=== PATIENT | female | born 1990 | race Caucasian/White ===

== ENCOUNTER → 2020-01-29 18:05 | Outpatient (CLI) | payer OTHER, SELFPAY | PROVIDERS: PCP Nurse Practitioner Family; Referring Provider Nurse Practitioner Family; Visit Provider Nurse Practitioner Family | DX: Z11.59 Encounter for screening for other viral diseases (principal); Z20.828 Contact with and (suspected) exposure to other viral communicable diseases | CPT/HCPCS: 87635; 87804; 87807; 87880; G2023; U0003 ==

== ENCOUNTER → 2020-07-25 09:41 | Outpatient (CLI) | payer OTHER, SELFPAY ==
[2020-06-04 08:17] VITALS: BMI 37.6
[2020-07-25 12:40] LABS: Vitamin B12 359 pg/mL (211-911)
[2020-07-25 12:44] LABS: T4 Free Direct 1.28 ng/dL (0.76-1.46); Thyroid Stim Hormone (TSH) 0.61 uIU/mL (0.358-3.74)
== END ==
PROVIDERS: PCP Nurse Practitioner Family; Referring Provider Internal Medicine Endocrinology, Diabetes & Metabolism; Visit Provider Internal Medicine Endocrinology, Diabetes & Metabolism
DX: E03.8 Other specified hypothyroidism (principal); E06.3 Autoimmune thyroiditis; R20.2 Paresthesia of skin
CPT/HCPCS: 36415; 82607; 84439; 84443

== ENCOUNTER 2021-08-20 09:28 | Outpatient (CLI) | payer OTHER, SELFPAY ==
[2021-08-20 12:17] LABS: Vitamin D,25 Hydroxy 26.9 ng/mL
[2021-08-20 12:24] LABS: T4 Free Direct 1.15 ng/dL (0.76-1.46); Thyroid Stim Hormone (TSH) 7.55 uIU/mL (0.358-3.74)
== END 2021-08-20 23:59 | disposition short-term general hospital (02) ==
LOC: BIMLAB 09:29
PROVIDERS: PCP Nurse Practitioner Family; Referring Provider Internal Medicine Endocrinology, Diabetes & Metabolism; Visit Provider Internal Medicine Endocrinology, Diabetes & Metabolism
DX: E03.8 Other specified hypothyroidism (principal); K55.9 Vascular disorder of intestine, unspecified; E06.3 Autoimmune thyroiditis; K90.9 Intestinal malabsorption, unspecified
CPT/HCPCS: 36415; 82306; 84439; 84443

== ENCOUNTER 2021-10-22 15:21 | Outpatient (CLI) | payer OTHER, SELFPAY ==
[2021-10-22 17:32] LABS: T4 Free Direct 1.45 ng/dL (0.76-1.46); Thyroid Stim Hormone (TSH) 0.33 uIU/mL (0.358-3.74)
== END 2021-10-22 23:59 | disposition home or self-care (01) ==
LOC: BIMLAB 15:23
PROVIDERS: PCP Nurse Practitioner Family; Referring Provider Internal Medicine Endocrinology, Diabetes & Metabolism; Visit Provider Internal Medicine Endocrinology, Diabetes & Metabolism
DX: E55.9 Vitamin D deficiency, unspecified (principal); E03.8 Other specified hypothyroidism; E06.3 Autoimmune thyroiditis; K90.9 Intestinal malabsorption, unspecified
CPT/HCPCS: 36415; 82306; 84439; 84443

== ENCOUNTER → 2022-09-25 | Outpatient (CLI) | payer BC, SELFPAY ==
[2022-09-25 12:36] LABS: Vitamin B12 633 pg/mL (211-911); Vitamin D,25 Hydroxy 39.3 ng/mL
[2022-09-25 13:04] LABS: Ferritin 86 ng/mL (8-252); T4 Free Direct 1.21 ng/dL (0.76-1.46)
== END | disposition home or self-care (01) ==
LOC: BIMLAB 10:06
PROVIDERS: PCP Nurse Practitioner Family; Referring Provider Internal Medicine Endocrinology, Diabetes & Metabolism; Visit Provider Internal Medicine Endocrinology, Diabetes & Metabolism
DX: E03.8 Other specified hypothyroidism (principal); E06.3 Autoimmune thyroiditis; K90.9 Intestinal malabsorption, unspecified
CPT/HCPCS: 36415; 82306; 82607; 82728; 84439; 84443

== ENCOUNTER → 2022-12-04 | Outpatient (CLI) | payer BC, SELFPAY ==
[2022-12-04 18:13] LABS: T4 Free Direct 1.21 ng/dL (0.76-1.46); Thyroid Stim Hormone (TSH) 1.23 uIU/mL (0.358-3.74)
== END | disposition home or self-care (01) ==
LOC: MTLAB 15:34
PROVIDERS: PCP Nurse Practitioner Family; Referring Provider Internal Medicine Endocrinology, Diabetes & Metabolism; Visit Provider Internal Medicine Endocrinology, Diabetes & Metabolism
DX: E03.8 Other specified hypothyroidism (principal); E06.3 Autoimmune thyroiditis
CPT/HCPCS: 36415; 84439; 84443

== ENCOUNTER → 2023-09-27 | Outpatient (CLI) | payer BC, SELFPAY ==
--- OUTSIDE RECORDS SUMMARY | 2023-09-27 10:40 | XMS RPT_ITS | CCD ---
Author Name Unknown Address [address] [place] [address] Organization [facility] Care Team Providers Care Home Inspector Name Role Phone Unavailable Primary Care Provider UnavailHYACINTH Andrew Attending Unavailable BRIGHT RAGSDALE Admitting Unavailab BRIGHT Daniels Referring Unavailab ARGENTINA Quintanilla Attending Unavailable NO, PHYSICIAN Primary Care Unavailable JUAN JOSE SAUL Attending Unavailabl e DORYS, JUAN JOSE BRAMBILA Admitting Unavailabl e DORYS, JUAN JOSE BRAMBILA Referring Unavailabl e NO, PHYSICIAN Primary Care Unavailable DORYS, JUAN JOSE BRAMBILA Admitting Unavailabl e DORYS, JUAN JOSE BRAMBILA Referring Unavailabl e NO, PHYSICIAN Primary Care Unavailable [facility] STRATEGIC CONSULTANT.[facility], [facility] Primary Care Provider [facility] STRATEGIC CONSULTANT.[facility], [facility] Primary Care Provider [facility] STRATEGIC CONSULTANT.[facility], [facility] Primary Care Provider [facility] STRATEGIC CONSULTANT.[facility], [facility] Primary Care Provider ZHENG BURGESS Attending Unavailable [facility] Primary Care Unavailable Allergies Allergy Classification Reported Allergen(s) Allergy Type Date of Onset Reaction(s) Facility Sulfonamides (antibiotic) (1 source) Sulfonamides (Antibiotic); Translations: [SULFA (SULFONAMIDE ANTIBIOTICS)] Drug Allergy 8 [facility] (5 sources) Sulfamethoxazole / Trimethoprim; Translations: [SULFAMETHOXAZOLE-TR IMETHOPRIM] Drug Allergy 8 Hives, Itching, Other: See Comments [facility] (5 sources) Sulfonamides (Antibiotic); Translations: [SULFA (SULFONAMIDE ANTIBIOTICS)] Drug Allergy 8 Hives, Itching, Other: See Comments [facility] Medications Current Medications Medication Drug Class(es) Dates Sig (Normalized) Sig (Original) levonorgestrel 0.454331 mg/hr intrauterine system (4 sources) Progestin, Progestin-containi ng Intrauterine Device Start: 11-23-2017 End: 11-23-2022 levonorgestrel (MIRENA) 20 mcg/24 hours (8 yrs) 52 mg IUD 1 Each by INTRAUTERINE route continuous. 0 11/23/2017 11/23/2022 Active Completed/Discontinued Medications Medication Drug Class(es) Dates Sig (Normalized) Sig (Original) 24 hr buPROPion hydrochloride 150 mg extended release oral tablet (4 sources) Aminoketone Start: 04-01-2022 End: 09-21-2022 take 1 tablet by mouth once daily buPROPion XL (WELLBUTRIN XL) 150 mg 24 hr tablet Indications: Mixed anxiety and depressive disorder , Primary insomnia TAKE 1 TABLET BY MOUTH EVERY DAY 90 tablet 1 04/01/2022 09/21/2022 Discontinued (Discontinued by Patient) Problems Active Problems Problem Classification Problem Date Documented Date Episodic/Chronic Anxiety disorders (6 sources) Mixed anxiety and depressive disorder; Translations: [Other specified anxiety disorders] Onset: 06-21-2019 Chronic Contraceptive and procreative management (2 sources) Contraception ; Translations: [Encounter for surveillance of other contraceptives] Onset: 09-21-2022 Episodic Miscellaneous mental health disorders (1 source) Primary insomnia; Translations: [Primary insomnia] Chronic Other nutritional; endocrine; and metabolic disorders (4 sources) Obese class II; Translations: [Obesity, unspecified] Onset: 03-13-2019 03-13-2019 Chronic Other nutritional; endocrine; and metabolic disorders (1 source) Severe obesity; Translations: [Morbid (severe) obesity due to excess calories] Chronic Other nutritional; endocrine; and metabolic disorders (1 source) Morbid (severe) obesity due to excess calories; Translations: [Class 3 severe obesity due to excess calories without serious comorbidity with body mass index (BMI) of 40.0 to 44.9 in adult (HCC)] Onset: 09-21-2022 Chronic Other nutritional; endocrine; and metabolic disorders (1 source) Body mass index (BMI) 40.0-44.9, adult; Translations: [Class 3 severe obesity due to excess calories without serious comorbidity with body mass index (BMI) of 40.0 to 44.9 in adult (HCC)] Onset: 09-21-2022 Chronic Substance-related disorders (2 sources) Tobacco user; Translations: [Nicotine dependence, unspecified, uncomplicated] Onset: 09-21-2022 Chronic Thyroid disorders (8 sources) Hypothyroidism; Translations: [Hypothyroidism, unspecified] Onset: 12-23-2005 04-02-2014 Chronic Past or Other Problems Problem Classification Problem Date Documented Da te Episodic/Chronic Other skin disorders (4 sources) Acne vulgaris; Translations: [Acne vulgaris] Onset: 04-07-2017 04-07-2017 Episodic Results Test Name Value Interpretation Reference Range Facil ity Vital Signs Date Time Vital Sign Value Performing Clinician Faci lity 09-21-2022 10:43-0500 Body height 162.6 cm Zheng Burgess APRN.CNM Work Phone: [facility] 09-21-2022 10:43-0500 Body weight 110.13 kg Zheng Burgess APRN.CNM Work Phone: [facility] 09-21-2022 10:43-0500 Diastolic blood pressure 74 mm[Hg] Zheng Burgess APRN.CNM Work Phone: [facility] 09-21-2022 10:43-0500 Systolic blood pressure 128 mm[Hg] Zheng Burgess APRN.CNM Work Phone: [facility] Encounters Encounter Date Encounter Type Care Provider Facility Start: 09-21-2022 End: 09-22-2022 ambulatory ZHENG BURGESS Facility:[facility] Start: 09-21-2022 Encounter for gynecological examination (general) (routine) with abnormal findings ZHENG BURGESS [facility] Start: 09-21-2022 End: 09-21-2022 Patient encounter procedure Zheng Burgess APRN.CNM Work Phone: OB/Gynecology Plan of Treatment Date Care Activity Detail Author Start: 06-21-2029 Tetanus vaccination Tetanus: Every 10yrs [facility] Start: 06-21-2029 Urine microalbumin profile DTAP,TDAP,TD (7 - Td or Tdap) [facility] Start: 07-09-2026 HPV TESTING HPV TESTING [facility] Start: 07-09-2026 PAP TESTING PAP TESTING [facility] Start: 04-30-2022 ANNUAL PCP TEAM CHRONIC DISEASE VISIT ANNUAL PCP TEAM CHRONIC DISEASE VISIT [facility] Start: 03-26-2022 Influenza vaccination INFLUENZA (#1) [facility] Start: 11-20-2021 COVID-19 VACCINE (4 - Booster for Pfizer series) COVID-19 VACCINE (4 - Booster for Pfizer series) [facility] Start: 11-29-2020 End: 11-29-2020 ambulatory 11/29/2020 Immunization Primary Care Bright Ragsdale MD [address] [place] [id number] [phone] [facility] [place] Covid Vaccine [facility] Start: 11-29-2020 COVID-19 Vaccine (2 - Pfizer 2-dose series) COVID-19 Vaccine (2 - Pfizer 2-dose series) [facility] Start: 08-08-2020 PNEUMOCOCCAL (2 - PCV) PNEUMOCOCCAL (2 - PCV) [facility] Start: 03-26-2020 Influenza vaccination Sequential Influenza Vaccine (#1) [facility] Start: 12-16-2007 Hepatitis C screening Hepatitis C Screening [facility] Start: 2004 HIV screening HIV Screening [facility] Start: 2001 Depression screening using PHQ-9 (Patient Health Questionnaire 9) score Depression Screening (PHQ9) [facility] Start: 1992 History and physical examination, annual for health maintenance Wellness Visit [facility] Start: 1989 Screening for malignant neoplasm of cervix Pap Smear [facility] Immunizations Immunization Date Immunization Notes Care Provider Fa cility 09-25-2021 COVID-19 vaccine, ag e 12+ yr (PFIZER-BIONTECH - PURPLE TOP) Joycelyn Osorio APRN.ELECTRIC NEEDLE SPECIALIST Work Phone: [facility] 11-08-2020 Pfizer SARS-CoV-2 Vaccination Hyacinth Kenyon RN [facility] 08-08-2019 pneumococcal polysaccharide vaccine, 23 valent Joycelyn Osorio STRATEGIC CONSULTANT.ELECTRIC NEEDLE SPECIALIST Work Phone: [facility] 06-21-2019 influenza, injectabl e, quadrivalent, contains preservative Joycelyn Devon STRATEGIC CONSULTANT.ELECTRIC NEEDLE SPECIALIST Work Phone: [facility] 06-21-2019 tetanus toxoid, redu [place] diphtheria toxoid, and acellular pertussis vaccine, adsorbed Joycelyn Devon STRATEGIC CONSULTANT.[facility] Work Phone: [facility] 11-18-2015 human papilloma viru s vaccine, quadrivalent Joycelyn Devon STRATEGIC CONSULTANT.ELECTRIC NEEDLE SPECIALIST Work Phone: [facility] Work Phone: 07-18-2015 human papilloma viru s vaccine, quadrivalent Joycelyn Devon STRATEGIC CONSULTANT.ELECTRIC NEEDLE SPECIALIST Work Phone: [facility] 05-20-2015 Human Papillomavirus 9-valent vaccine Joycelyn Devon STRATEGIC CONSULTANT.[facility] Work Phone: [facility] Work Phone: 02-04-2007 human papilloma viru s vaccine, quadrivalent Joycelyn Devon STRATEGIC CONSULTANT.[facility] Work Phone: [facility] Work Phone: 09-07-2006 Meningococcal, MCV4, unspecified conjugate formulation(groups A, C, Y and W-135) Joycelyn Devon STRATEGIC CONSULTANT.[facility] Work Phone: [facility] Work Phone: 01-24-2004 tetanus and diphther ia toxoids, adsorbed, preservative free, for adult use (2 Lf of tetanus toxoid and 2 Lf of diphtheria toxoid) Joycelyn Devon STRATEGIC CONSULTANT.[facility] Work Phone: [facility] Work Phone: 08-21-2002 hepatitis B vaccine, pediatric or pediatric/adolescent dosage Joycelyn Devon STRATEGIC CONSULTANT.ELECTRIC NEEDLE SPECIALIST Work Phone: [facility] Work Phone: 12-28-2001 hepatitis B vaccine, pediatric or pediatric/adolescent dosage Joycelyn Devon STRATEGIC CONSULTANT.ELECTRIC NEEDLE SPECIALIST Work Phone: [facility] Work Phone: 12-28-2001 measles, mumps and rubella virus vaccine Joycelyn Devon STRATEGIC CONSULTANT.ELECTRIC NEEDLE SPECIALIST Work Phone: [facility] Work Phone: 10-19-2001 hepatitis B vaccine, pediatric or pediatric/adolescent dosage Joycelyn Devon STRATEGIC CONSULTANT.[facility] Work Phone: [facility] Work Phone: 02-18-1995 diphtheria, tetanus toxoids and pertussis vaccine Joycelyn Deovn STRATEGIC CONSULTANT.[facility] Work Phone: [facility] Work Phone: 02-18-1995 trivalent poliovirus vaccine, live, oral Joycelyn Devon STRATEGIC CONSULTANT.[facility] Work Phone: [facility] Work Phone: 08-10-1991 diphtheria, tetanus toxoids and pertussis vaccine Joycelyn Devon STRATEGIC CONSULTANT.[facility] Work Phone: [facility] Work Phone: 08-10-1991 trivalent poliovirus vaccine, live, oral Joycelyn Devon STRATEGIC CONSULTANT.[facility] Work Phone: [facility] Work Phone: 05-11-1991 haemophilus influenz ae type b vaccine, PRP-D conjugate Joycelyn Devon STRATEGIC CONSULTANT.[facility] Work Phone: [facility] Work Phone: 05-11-1991 measles, mumps and rubella virus vaccine Joycelyn Devon STRATEGIC CONSULTANT.[facility] Work Phone: [facility] Work Phone: 06-30-1990 diphtheria, tetanus toxoids and pertussis vaccine Joycelyn Devon STRATEGIC CONSULTANT.[facility] Work Phone: [facility] Work Phone: 04-28-1990 diphtheria, tetanus toxoids and pertussis vaccine Joycelyn Devon STRATEGIC CONSULTANT.[facility] Work Phone: [facility] Work Phone: 04-28-1990 trivalent poliovirus vaccine, live, oral Joycelyn Devon STRATEGIC CONSULTANT.[facility] Work Phone: [facility] Work Phone: 02-24-1990 diphtheria, tetanus toxoids and pertussis vaccine [facility] STRATEGIC CONSULTANT.ELECTRIC NEEDLE SPECIALIST Work Phone: [facility] Work Phone: 02-24-1990 trivalent poliovirus vaccine, live, [facility].ELECTRIC NEEDLE SPECIALIST Work Phone: [facility] Work Phone: Payers Date Payer Category Payer Unknown [id number] 2019 Unknown [id number] 2019 Unknown MMO MMO [employer] [id number] 2019-Present [phone] [address] [place] [address] PPO [id number] 2019 Unknown [id number] 1989 Unknown [id number] 1989 Unknown [id number] 1989 Unknown [id number] Social History Date Type Detail Facility Tobacco smoking stat [facility] Unknown if ever smoked [facility] Sex Assigned At Not on file [facility] Exposure to SARS-CoV -2 (event) Not sure [facility] Start: 02-24-2008 End: 09-21-2022 Tobacco smoking status [facility]IS Smokes tobacco daily [facility] Work Phone: Start: 02-24-2008 History of tobacco use Cigarette Smoker [facility] Work Phone: Start: 03-13-2011 End: 09-21-2022 Cigarettes smoked current (pack per day) - Reported 0.5 [facility] Start: 03-13-2011 End: 09-21-2022 Tobacco use and exposure Smokeless tobacco non-user [facility] Work Phone: Start: 07-09-2021 End: 09-21-2022 Alcohol intake Current drinker of alcohol (finding) [facility] Start: 07-30-2019 End: 06-18-2020 History SDOH Alcohol Frequency 5 [facility] Start: 06-18-2020 History SDOH Alcohol Std Drinks 3 [facility] Start: 05-14-2017 History SDOH Alcohol Comment occasionally [facility] Start: 09-06-2019 End: 06-18-2020 History SDOH Social Connections Roman [employer] 1 [facility] Start: 07-30-2019 End: 08-12-2020 History SDOH Social Connections Membership 2 [facility] Start: 07-30-2019 History SDOH Social Connections Living 7 [facility] Start: 07-30-2019 History SDOH Physical Activity DPW 0 [facility] Start: 07-30-2019 Education 18 [facility] Start: 03-13-2019 End: 09-21-2022 Tobacco Comment currently 4-[facility] cig[facility] a day [facility] Start: [facility] Sex Assigned At Female [facility] Clinical Notes 09-21-2014 to 09-21-2022 Patient InstructionsZheng Burgess APRN.CNM - 09/21/2022 10:38 AM ESTTelephone Encounter - Leigh Edomnd Pss - 04/22/2022 11:12 AM EDTTelephone Encounter - Annie Rodriguez Ma - 01/29/2022 9:04 AM EDT Note Date & Type Note Facility 09-21-2022 Note HNO ID: [id number] Author: Zheng Burgess APRN.CNM Service: ? Author Type: Continuous Mining Machine Operator Type: Progress Notes Filed: 09/21/2022 4:31 PM Note Text: Regional Vice President Surgical Sales offered: Patient declines. Radha is a 31 year old who presents for an annual gynecologic exam without complaints. 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 Menses: None- IUD Contraception: IUD - Mirena HPV vaccine: Yes Last Pap: 07/16/2021 normal HPV: 07/14/2021 negative History of abnormal pap: Yes Last mammogram: 2021normal - lump found on annual exam 08/20/21 The 0.7 cm x 0.3 cm x 0.6 cm round normal lymph node in the right breast is benign. Sexually active: Yes History of STDS: None Time with current partner: 2.5 years Exercise: No Diet: regular Seatbelt use: Yes OB History T0 L0 SAB0 IAB0 Ectopic0 Multiple0 Live Births0 Guest Services Representative History LMP: 12/20/2012, IUD Age at Menarche: Age at First : Age at Menopause: Guest Services Representative History Comments: Sexual Activity: Yes; Male; Mirena Contraception: I.U.D. PAST MEDICAL HISTORY Diagnosis Date Anal fissure PMH - PAST MEDICAL HISTORY OF Color Vision - Normal Unspecified hypothyroidism 02/26 Wrist fracture Right wrist PAST SURGICAL HISTORY Procedure Laterality Date PAST SURGICAL HISTORY OF 11/2012 Mirena IUD insertion PAST SURGICAL HISTORY OF 2007 Jaw surgery FAMILY HISTORY Problem Relation Age of Onset Hypertension Mother Arthritis Mother No Known Problems Father No Known Problems Sister Arthritis Maternal Grandmother Breast Cancer Maternal Grandmother Hypertension Maternal Grandfather Prostate Cancer Maternal Grandfather other (lymphoma) Paternal Grandmother Coronary Artery Disease Paternal Grandfather Breast Cancer Maternal Aunt 50 SOCIAL HISTORY Social History Tobacco Use Smoking status: Every Day Packs/day: 0.50 Years: 11.00 Pack years: 5.50 Types: Cigarettes Start date: 02/24/2008 Smokeless tobacco: Never Tobacco comments: currently 4-6 cigs a day Vaping Use Vaping Use: Never used Substance Use Topics Alcohol use: Yes Comment: occasionally Drug use: No REVIEW OF SYSTEMS Abdomen: No abdominal pain, nausea, vomiting, diarrhea, or constipation. No bloating, early satiety, indigestion, or increased flatulence. Bladder: No dysuria, gross hematuria, urinary frequency, urinary urgency, or incontinence. Breast: No breast lumps, nipple d/c, overlying skin changes, redness or skin retraction. Allergies and current medication updated:Yes EXAM: BP 128/74 Ht 5' 4 (1.63m) Wt 242 lb 12.8 oz (110.1kg) LMP 12/20/2012 BMI 41.66 kg/(m2). GENERAL: pleasant, female in no apparent distress HEENT: Normocephalic, atraumatic, mucus membranes moist, and no lesions NECK: Supple, full range of motion, no adenopathy, and thyroid normal DERMATOLOGY: Normal, without lesions, non-icteric, and non-hirsute BREAST: soft, non-tender, symmetric, no dominant mass, normal nipple-areolar complex, no lymphadenopathy, and no nipple discharge CHEST: Normal inspiratory effort ABDOMEN: soft, non-tender, and no masses PELVIC: external genitalia normal, normal Bartholin's glands, urethra, [place]'s glands, no vulvar lesions, no cervical lesions, good vaginal support, physiologic discharge present, normal appearing perineal body and perianal region, IUD strings visualized. BIMANUAL: uterus normal size, shape and consistency, no adnexal masses, non-tender, and no cervical motion tenderness. IUD non-palpable RECTOVAGINAL: deferred. NEURO: alert and oriented x3,exam grossly non-focal EXTREMITIES: normal ASSESSMENT/PLAN: 1. Encounter for gynecological examination with abnormal finding - ICD9: V72.31, ICD10: Z01.411 (primary diagnosis) - Completed pelvic and breast exam - Encouraged monthly BSE - Follow up for annual exam in one year. 2. Encounter for surveillance of other contraceptive - ICD9: V25.49, ICD10: Z30.49 -Mirena IUD inserted 11/2017. Effective through 11/2025. No complications or concerns. 3. Class 3 severe obesity due to excess calories without serious comorbidity with body mass index (BMI) of 40.0 to 44.9 in adult (HCC) - ICD9: 278.01, V85.41, ICD10: E66.01, Z68.41 -Nutrition, exercise and routine health maintenance exams reviewed. -Calcium/Vitamin D supplementation information provided. 4. Tobacco use disorder - ICD9: 305.1, ICD10: F17.200 - Cessation encouraged. - Physiologic and physical aspects of tobacco addiction as well as strategies for quitting were discussed. - Counseling was given focusing on the harmful effects of this addiction especially given the patient's medical condition(s) which will be worsened because of the chemicals in tobacco. - Counseling was given 8 minutes. -Smoking cessation encouraged and resources provided. Benefits of smoking cessation reviewed. Patient encouraged to avoid smoking. 1) Health maintenance (more content not included)... [facility] 09-21-2022 Instructions Carolyne Youssef - 09/21/2022 11:18 AM EST SMOKING CESSATION Stopping smoking is the most important thing you can do to protect your current and future health, as well as that of your family. It is the most potent risk factor for the future development of coronary artery disease and heart attacks. Smoking is both an addiction and a learned behavior. The nicotine withdrawal takes anywhere from 2-4 weeks and results in symptoms such as irritability, fatigue, insomnia, coughing, dizziness, poor concentration, hunger and cigarette cravings. After the nicotine withdrawal period, the learned linkage between certain acts or situations and cigarette use remain. Strategies to deal with these must be developed along with new behaviors to ensure successful smoking cessation. STRATEGIES TOWARD SMOKING CESSATION - Make a list of the reasons why you want to quit, plus the benefits to be gained, and compare them to the reasons why you should continue to smoke. - Pick a specific quit date. - If you are interested in using nicotine patches or gum to assist with the nicotine withdrawal, let the staff know. - Inform friends, family, and co-workers that you are quitting and when your quit date is. Ask for their understanding and support. - Prepare your environment by removing all cigarettes prior to your quit date. - Prior to your quit date, avoid smoking in places where you spend a lot of time (such as the house, work, car). - From previous quit attempts, identify what helped you to stop smoking. - From previous quit attempts, identify what triggered relapse. How can you avoid that again? - What things (situations, emotions) do you anticipate will be most challenging, especially in the first few weeks, to your quitting effort? - What can you do to address these challenges? - Avoid (or limit) alcohol consumption during the quitting process. - If your spouse or close coworker currently smoke, consider quitting together or at the very least, develop specific plans to maintain your cigarette abstinence while in the home or at work. - Take each day, each hour, each craving, one at a time. Every step or action you take toward smoking cessation is a success. The only failure is the failure to try. - The health of you and your family, is worth the effort. STOP SMOKING CHECK LIST Preparing to Quit: ___ Make a personal pact with yourself to quit. ___ Pick a date for quitting completely. (My date to quit is ____.) ___ Write down on a card the three most important reasons for quitting. Carry the card with you from now on. Look at it several times a day. ___ Prior to quitting, eliminate smoking completely in 2 or 3 of your high risk situations. ___ Reduce consumption to one pack per day or less. ___ Change to a less desirable brand of cigarettes. ___ Discard your school cafeteria cook. Use matches. Carry your cigarettes in a different place. ___ Spend a little time each day picturing in your mind stressful events occurring in the future and you not smoking. Actual Quitting: The First Two Weeks ___ Get rid of all cigarettes. Put away all smoking related objects such as ashtrays. Ask the people you live with not to smoke in your presence for the first two weeks. ___ Spend as much time as possible with non-smoking people. ___ Keep busy, especially on evenings and weekends. ___ Avoid high risk situations (large parties, bars, etc.). ___ Spend lots of time in places that prohibit or discourage smoking (e.g., theaters, libraries.) ___ Drink plenty of fluids. ___ Don't substitute food or sugar based products for cigarettes. Use approved substitutions. (... ice water, high bulk/low calorie foods, sugarless gum, mouthwash, brushing teeth.) ___ Begin or increase regular exercise program. ___ When experiencing withdrawal effects: 1. Remind yourself why you are quitting (from your card). 2. Remind yourself that whatever discomfort you are experiencing is only a tiny fraction of the probable discomfort associated with continued smoking. 3. Practice deep breathing or other relaxation techniques - tapes. ___ Remind yourself that you can free yourself from this unhealthy, expensive, messy habit and become a non-smoker. Maintenance of Quitting: After two weeks ___ Remind yourself that the desire to smoke is linked to a great many situations, people and emotional stress. ___ When you do have a desire to smoke, remember that it only lasts a few seconds: distract yourself and leave the situation if necessary. ___ After each desire to smoke has passed, pat yourself on the back, you have just made progress in breaking the habit forever. ___ Save the money on wasted on cigarettes in a special fund and buy yourself something nice. Maintenance of Quitting: After Two Months ___ Be particularly vigilant when unusual life events occur. (.. weddings, holidays, vacations.) ___ Be particularly vigilant when stressful life events occur (e.g., relationship problems, financial or work problems.) ___ Remind yourself regularly that not smoking is completely within your personal control. ___ Never lull yourself into thinking you are out of danger and you can safely have a cigarette or two. -- you cannot!!!!! ___ If, by chance, you do slip and have one or more cigarettes, do not conclude that all is lost . Return to complete abstinence immediately and learn from your experience. ___ If you have gained significant weight since quitting, now is the time to do something about it. ___ Each time you see a cigarettes advertisement, remind yourself of why you quit. Also remember that a [employer] industry spends billions of dollars each year trying to get people like yourself re-hooked . documented in this encounter [facility] 09-21-2022 History of Presen t illness Narrative Regional Vice President Surgical Sales offered: Patient declines. Radha is a 31 year old who presents for an annual gynecologic exam without complaints. 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 Menses: None- IUD Contraception: IUD - Mirena HPV vaccine: Yes Last Pap: 07/16/2021 normal HPV: 07/14/2021 negative History of abnormal pap: Yes Last mammogram: 2021normal - lump found on annual exam 08/20/21 The 0.7 cm x 0.3 cm x 0.6 cm round normal lymph node in the right breast is benign. Sexually active: Yes History of STDS: None Time with current partner: 2.5 years Exercise: No Diet: regular Seatbelt use: Yes OB History T0 L0 SAB0 IAB0 Ectopic0 Multiple0 Live Births0 Guest Services Representative History LMP: 12/20/2012, IUD Age at Menarche: Age at First : Age at Menopause: Guest Services Representative History Comments: Sexual Activity: Yes; Male; Mirena Contraception: I.U.D. PAST MEDICAL HISTORY Diagnosis Date Anal fissure PMH - PAST MEDICAL HISTORY OF Color Vision - Normal Unspecified hypothyroidism 02/26 Wrist fracture Right wrist PAST SURGICAL HISTORY Procedure Laterality Date PAST SURGICAL HISTORY OF 11/2012 Mirena IUD insertion PAST SURGICAL HISTORY OF 2007 Jaw surgery FAMILY HISTORY Problem Relation Age of Onset Hypertension Mother Arthritis Mother No Known Problems Father No Known Problems Sister Arthritis Maternal Grandmother Breast Cancer Maternal Grandmother Hypertension Maternal Grandfather Prostate Cancer Maternal Grandfather other (lymphoma) Paternal Grandmother Coronary Artery Disease Paternal Grandfather Breast Cancer Maternal Aunt 50 SOCIAL HISTORY Social History Tobacco Use Smoking status: Every Day Packs/day: 0.50 Years: 11.00 Pack years: 5.50 Types: Cigarettes Start date: 02/24/2008 Smokeless tobacco: Never Tobacco comments: currently 4-6 cigs a day Vaping Use Vaping Use: Never used Substance Use Topics Alcohol use: Yes Comment: occasionally Drug use: No REVIEW OF SYSTEMS Abdomen: No abdominal pain, nausea, vomiting, diarrhea, or constipation. No bloating, early satiety, indigestion, or increased flatulence. Bladder: No dysuria, gross hematuria, urinary frequency, urinary urgency, or incontinence. Breast: No breast lumps, nipple d/c, overlying skin changes, redness or skin retraction. Allergies and current medication updated:Yes EXAM: BP 128/74 Ht 5' 4 (1.63m) Wt 242 lb 12.8 oz (110.1kg) LMP 12/20/2012 BMI 41.66 kg/(m^2). GENERAL: pleasant, female in no apparent distress HEENT: Normocephalic, atraumatic, mucus membranes moist, and no lesions NECK: Supple, full range of motion, no adenopathy, and thyroid normal DERMATOLOGY: Normal, without lesions, non-icteric, and non-hirsute BREAST: soft, non-tender, symmetric, no dominant mass, normal nipple-areolar complex, no lymphadenopathy, and no nipple discharge CHEST: Normal inspiratory effort ABDOMEN: soft, non-tender, and no masses PELVIC: external genitalia normal, normal Bartholin's glands, urethra, [place]'s glands, no vulvar lesions, no cervical lesions, good vaginal support, physiologic discharge present, normal appearing perineal body and perianal region, IUD strings visualized. BIMANUAL: uterus normal size, shape and consistency, no adnexal masses, non-tender, and no cervical motion tenderness. IUD non-palpable RECTOVAGINAL: deferred. NEURO: alert and oriented x3,exam grossly non-focal EXTREMITIES: normal ASSESSMENT/PLAN: 1. Encounter for gynecological examination with abnormal finding - ICD9: V72.31, ICD10: Z01.411 (primary diagnosis) - Completed pelvic and breast exam - Encouraged monthly BSE - Follow up for annual exam in one year. 2. Encounter for surveillance of other contraceptive - ICD9: V25.49, ICD10: Z30.49 -Mirena IUD inserted 11/2017. Effective through 11/2025. No complications or concerns. 3. Class 3 severe obesity due to excess calories without serious comorbidity with body mass index (BMI) of 40.0 to 44.9 in adult (HCC) - ICD9: 278.01, V85.41, ICD10: E66.01, Z68.41 -Nutrition, exercise and routine health maintenance exams reviewed. -Calcium/Vitamin D supplementation information provided. 4. Tobacco use disorder - ICD9: 305.1, ICD10: F17.200 - Cessation encouraged. - Physiologic and physical aspects of tobacco addiction as well as strategies for quitting were discussed. - Counseling was given focusing on the harmful effects of this addiction especially given the patient's medical condition(s) which will be worsened because of the chemicals in tobacco. - Counseling was given 8 minutes. -Smoking cessation encouraged and resources provided. Benefits of smoking cessation reviewed. Patient encouraged to avoid smoking. 1) Health maintenance: Pap/HPV up to date. 2) Contraception: IUD. Contraceptive options reviewed and information provided. 3) STD screening: Declined STD check. 4) Follow up one year or sooner as needed Carolyne Youssef, student ZIYAD Burgess APRN.CNM TEACHING NOTE OF PERSONAL INVOLVEMENT IN CARE: I have interviewed the patient and updated the student's PFS history, and ROS as necessary. I have re-performed the HPI, Physical Examination, Assessment and Plan. documented in this encounter [facility] 04-22-2022 Miscellaneous Notes Received prescription & certificate form by fax from [facility]. Placed form in the provider's in-box for review and signature. The patient KAREN: 05/08/21 and doesn't have any future appointments scheduled. documented in this encounter [facility] 03-31-2022 Miscellaneous Notes Patient phones requesting refills as follows: Requested Prescriptions Pending Prescriptions Disp Refills buPROPion XL (WELLBUTRIN XL) 150 mg 24 hr tablet [Pharmacy Med Name: BUPROPION HCL XL 150 MG TABLET] 90 tablet 1 Sig: TAKE 1 TABLET BY MOUTH EVERY DAY KAREN-04/30/21 Labs-07/09/21 NOV-none med filled 08/11/21 Please review and advise. Nelida Herndon LPN documented in this encounter [facility] 01-29-2022 Miscellaneous Notes Last office visit: 04/30/21 F/u scheduled: none Annie Rodriguez Ma documented in this encounter [facility] documented as of this encounter (statuses as of 01/29/2022) [facility] of Past illness Narrative* Problem Noted Date Resolved Date Anal fissure 09/21/2014 04/03/2015 documented as of this encounter (statuses as of 04/01/2022) [facility] of Past illness Narrative* Problem Noted Date Resolved Date Anal fissure 09/21/2014 04/03/2015 documented as of this encounter (statuses as of 04/22/2022) [facility] of Past illness Narrative* Problem Noted Date Resolved Date Anal fissure 09/21/2014 04/03/2015 documented as of this encounter (statuses as of 09/22/2022) [facility] Mixed anxiety and depressive disorder Dysthymic disorder [facility] Diagnosis Mixed anxiety and depressive disorder Dysthymic disorder Primary insomnia Persistent disorder of initiating or maintaining sleep documented in this encounter [facility] note* Diagnosis Encounter for gynecological examination with abnormal finding- Primary Routine gynecological examination Encounter for surveillance of other contraceptive Class 3 severe obesity due to excess calories without serious comorbidity with body mass index (BMI) of 40.0 to 44.9 in adult (HCC) Tobacco use disorder documented in this encounter [facility] Advance Directives No Advanced Directives Records FoundDocuments on File Type Date Recorded Patient Pharm Tech Expl anation Advance Directives and Livin g Will 10/31/2020 12:00 AM Summary Purpose Family History No Family History Records FoundNo Family History Records FoundNo Family History Records Found Additional Source Comments INFORMATION SOURCE (unrecogn ized section and content) DATE CREATED AUTHOR AUTHOR'S ORGANIZ ATION 02/21/2021 [facility] DATE CREATED AUTHOR AUTHOR'S ORGANIZ ATION 09/26/2022 [facility] Source Comments (unrecognize d section and content) In the event this informatio n is protected by the Federal Confidentiality of Alcohol and Drug Abuse Patient Records regulations: The Federal rules restrict any use of the information to criminally investigate or prosecute any alcohol or drug abuse patient.[facility] the event this information is protected by the Federal Confidentiality of Alcohol and Drug Abuse Patient Records regulations: The Federal rules restrict any use of the information to criminally investigate or prosecute any alcohol or drug abuse patient.[facility] the event this information is protected by the Federal Confidentiality of Alcohol and Drug Abuse Patient Records regulations: The Federal rules restrict any use of the information to criminally investigate or prosecute any alcohol or drug abuse patient.[facility] the event this information is protected by the Federal Confidentiality of Alcohol and Drug Abuse Patient Records regulations: The Federal rules restrict any use of the information to criminally investigate or prosecute any alcohol or drug abuse patient.[facility] Reason for Visit (unrecogniz ed section and content) Reason Comments CPAP Supplies Reason Comments Yearly Exam Care Teams (unrecognized sec tion and content) Home Inspector Relationship Specialty Start Date End Date Joycelyn Osorio APRN.ELECTRIC NEEDLE SPECIALIST [address] [place] [address] PCP - General Family Medicine 06/21/19 Home Inspector Relationship Specialty Start Date End Date DevonJoycelyn rowan APRN.ELECTRIC NEEDLE SPECIALIST [address] [place] [address] PCP - General Family Medicine 06/21/19 FOR RECORDS PERTAINING TO PATIENTS WHO ARE OR HAVE BEEN ENROLLED IN A CHEMICAL DEPENDENCY/SUBSTANCEABUSE PROGRAM, SOME INFORMATION MAY BE OMITTED. This clinical summary was aggregated from multiple sources. Caution should be exercised in using it in the provision of clinical care. This summary normalizes information from multiple sources, and as a consequence, information in this document may materially change the coding, format and clinical context of patient data. In addition, data may be omitted in some cases. CLINICAL DECISIONS SHOULD BE BASED ON THE PRIMARY CLINICAL RECORDS. [facility]. provides no warranty or guarantee of the accuracy or completeness of information in this document.
[2023-09-27 13:05] LABS: Vitamin B12 305 pg/mL (211-911); Vitamin D,25 Hydroxy 25.9 ng/mL
[2023-09-27 13:12] LABS: ALB/GLOB Ratio 1.1 RATIO (0.9-2.4); AST(SGOT) 24 U/L (15-37); Alanine Aminotransfer ALT/SGPT 34 U/L (13-56); Albumin, Serum 3.6 g/dL (3.2-5.0); Alkaline Phosphatase 87 U/L (45-117); Anion Gap 4 (5-15); BUN 16 mg/dL (7-18); BUN/Creat Ratio 21.3 RATIO (10-20); Calcium,Total 9.3 mg/dL (8.5-10.1); Chloride 109 mmol/L (98-107); Creatinine, Serum 0.75 mg/dL (0.55-1.02); EST Glomerular Filtration Rate 94 mL/min (>60); Est Glom Filt Rate - Afr Amer 114 mL/min (>60); Ferritin 75 ng/mL (8-252); Globulin 3.4 g/dL (2.2-4.2); Glucose 106 mg/dL (74-106); Potassium 3.8 mmol/L (3.5-5.1); Sodium Level 137 mmol/L (136-145); T4 Free Direct 1.65 ng/dL (0.76-1.46); Thyroid Stim Hormone (TSH) 0.04 uIU/mL (0.358-3.74)
== END | disposition home or self-care (01) ==
LOC: BIMLAB 10:10
PROVIDERS: PCP Nurse Practitioner Family; Visit Provider Internal Medicine Endocrinology, Diabetes & Metabolism
DX: E03.8 Other specified hypothyroidism (principal); E06.3 Autoimmune thyroiditis; K90.9 Intestinal malabsorption, unspecified; E55.9 Vitamin D deficiency, unspecified
CPT/HCPCS: 36415; 80053; 82306; 82607; 82728; 84439; 84443

== ENCOUNTER → 2024-01-25 | Outpatient (CLI) | payer BC, SELFPAY ==
[2024-01-25 15:50] LABS: T4 Free Direct 1.18 ng/dL (0.76-1.46); Thyroid Stim Hormone (TSH) 6.25 uIU/mL (0.358-3.74)
== END | disposition home or self-care (01) ==
LOC: BIMLAB 14:03
PROVIDERS: PCP Nurse Practitioner Family; Referring Provider Internal Medicine Endocrinology, Diabetes & Metabolism; Visit Provider Internal Medicine Endocrinology, Diabetes & Metabolism
DX: E03.8 Other specified hypothyroidism (principal); E06.3 Autoimmune thyroiditis
CPT/HCPCS: 36415; 84439; 84443

== ENCOUNTER → 2024-09-25 | Outpatient (CLI) | payer BC, SELFPAY ==
[2024-09-25 13:25] LABS: Absolute Lymphocyte Count 1.99 X10^3/uL (0.83-4.51); Absolute Neutrophil Count 5.5 X10^3/uL (2.0-7.7); Basophil# 0.04 X10^3/uL; Basophil% 0.5 % (0-1); Eosinophil# 0.05 X10^3/uL; Eosinophils% 0.6 % (0-5); Hematocrit 45.8 % (37-47); Hemoglobin 15.2 g/dL (12.0-15.0); Lymphocyte # 1.99 X10^3/ul (0.83-4.51); Mean Corp Hgb Conc 33.2 g/dL (32-36); Mean Corpuscular Hgb 30.3 pg (27.0-32.0); Mean Corpuscular Volume 91.2 fL (81-99); Mean Platelet Vol. 10.4 fl (6.2-12.0); Monocyte# 0.37 X10^3/uL; Monocyte% 4.6 % (0-10); NRBC Flagged by Analyzer 0 % (0-5); Platelet Count 272 K/mm3 (150-450); RBC Distribution Width CV 12.9 % (11.6-14.6); RBC Distribution Width SD 42.8 fl (35.1-43.9); Red Blood Count 5.02 M/mm3 (4.2-5.4)
[2024-09-25 13:42] LABS: Cholesterol 168 mg/dL (<=200); Ferritin 216 ng/mL (22-378); High Density Lipoprotein 59 mg/dL; Low Density Lipoprotein Calc. 91 mg/dL; Thyroid Stim Hormone (TSH) 0.156 uIU/mL (0.300-4.200); Triglycerides 91 mg/dL; Very Low Density Lipoprotein 18 mg/dL (5-40); Vitamin B12 463 pg/mL (180-914); Vitamin D,25 Hydroxy 22.2 ng/mL (30-100); cholesterol:hdl ratio screen 2.86
[2024-09-25 15:08] LABS: ALB/GLOB Ratio 1.8 RATIO (0.9-2.4); AST(SGOT) 27 U/L (<=31); Alanine Aminotransfer ALT/SGPT 22 U/L (<=34); Albumin, Serum 4.5 g/dL (3.5-5.0); Alkaline Phosphatase 80 U/L (35-104); Anion Gap 16 (5-15); BUN 16 mg/dL (4-19); BUN/Creat Ratio 22.4 RATIO (10-20); Calcium 9.3 mg/dL (7.6-11.0); Carbon Dioxide 19.5 mmol/L (22.0-29.0); Chloride 102 mmol/L (96-108); EST Glomerular Filtration Rate 116 (>60); Globulin 2.5 g/dL (2.2-4.2); Glucose 93 mg/dL (70-99); Protein, Total 7.1 g/dL (5.9-8.4); Sodium Level 137 mmol/L (133-145); Total Bilirubin 0.42 mg/dL (0.00-1.30)
== END | disposition home or self-care (01) ==
LOC: BIMLAB 10:27
PROVIDERS: PCP Nurse Practitioner Family; Visit Provider Internal Medicine Endocrinology, Diabetes & Metabolism
DX: E03.8 Other specified hypothyroidism (principal); E06.3 Autoimmune thyroiditis; K90.9 Intestinal malabsorption, unspecified
CPT/HCPCS: 36415; 80053; 80061; 82306; 82607; 82728; 84439; 84443; 85025

== ENCOUNTER → 2025-03-15 | Outpatient (CLI) | payer BC, SELFPAY ==
[2025-03-15 18:52] LABS: AST(SGOT) 24 U/L (<=31); Alanine Aminotransfer ALT/SGPT 22 U/L (<=34); Albumin, Serum 4.4 g/dL (3.5-5.0); Alkaline Phosphatase 82 U/L (35-104); Anion Gap 12 (5-15); BUN 16 mg/dL (4-19); BUN/Creat Ratio 18.7 RATIO (10-20); Calcium,Total 9.5 mg/dL (7.6-11.0); Carbon Dioxide 25.0 mmol/L (21.0-32.0); Chloride 101 mmol/L (98-108); Globulin 2.7 g/dL (2.2-4.2); Glucose 129 mg/dL (70-99); Potassium 3.8 mmol/L (3.3-5.1)
== END | disposition home or self-care (01) ==
LOC: MTLAB 16:43
PROVIDERS: PCP Nurse Practitioner Family; Referring Provider Internal Medicine Endocrinology, Diabetes & Metabolism; Visit Provider Internal Medicine Endocrinology, Diabetes & Metabolism
DX: E03.8 Other specified hypothyroidism (principal); E06.3 Autoimmune thyroiditis; K90.9 Intestinal malabsorption, unspecified
CPT/HCPCS: 36415; 80053; 84439; 84443